=== PATIENT | male | born 1985 | race Caucasian/White ===

== ENCOUNTER 2019-10-16 16:38 | Inpatient (IN) | payer MEDICAID, SELFPAY ==
[2019-10-18 06:00] VITALS: BP 121/75; PULSE 75; RESP 19; TEMP 36.6; O2SAT 97
[2019-10-18] MEDS: PARoxetine 20 mg Tablet PO (10:23)
[2019-10-18] MEDS: lithium carbonate 150 mg Capsule PO ×2 (10:23→17:25)
[2019-10-18 14:00] VITALS: BP 123/79; PULSE 102; RESP 20; TEMP 36.9; O2SAT 97
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
[2019-10-18 19:57] VITALS: BP 157/80; PULSE 99; RESP 20; TEMP 36.6; O2SAT 95
[2019-10-18] MEDS: trazodone 50 mg Tablet PO (20:46)
[2019-10-19 06:00] VITALS: BP 142/85; PULSE 90; RESP 20; TEMP 36.4; O2SAT 98
[2019-10-19] MEDS: PARoxetine 20 mg Tablet PO (08:35)
[2019-10-19] MEDS: lithium carbonate 150 mg Capsule PO (08:35)
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
[2019-10-19 11:48] VITALS: BP 142/85; RESP 20; TEMP 36.4; O2SAT 98
--- NOTE | 2019-10-19 13:19 | DCPLANNER ---
medicaid [place] CARE transportation phone number: [phone]. Trip # [id number]
== END 2019-10-19 17:09 | disposition home or self-care (01) | DRG 882 ==
PROVIDERS: Emergency Provider Family Medicine; Family Provider Nurse Practitioner Family; PCP Nurse Practitioner Family; Referring Provider Nurse Practitioner Family; Visit Provider Psychiatry & Neurology Psychiatry
DX: F43.25 Adjustment disorder with mixed disturbance of emotions and conduct (principal); T14.91XA Suicide attempt, initial encounter; X83.8XXA Intentional self-harm by other specified means, initial encounter; F31.60 Bipolar disorder, current episode mixed, unspecified; F43.10 Post-traumatic stress disorder, unspecified; G47.30 Sleep apnea, unspecified; K21.9 Gastro-esophageal reflux disease without esophagitis; F63.81 Intermittent explosive disorder; F41.1 Generalized anxiety disorder; E66.9 Obesity, unspecified; Z68.34 Body mass index [BMI] 34.0-34.9, adult
CPT/HCPCS: 36415; 72125; 76536; 80053; 80307; 85025; 99223; 99232; 99283; 99285

== ENCOUNTER 2025-07-15 15:50 | Emergency (ER) | payer SELFPAY ==
--- OUTSIDE RECORDS SUMMARY | 2019-09-23 06:00 | XMS_ITS | Continuity of Care Document ---
Author Organization [facility] Address [id number] [address] Phone Care Team Providers Care Ingredient Handler Name Role Phone Polo Márquez DDS Unavailable Unavailable Unavailable Unavailable Unavailable Allergies, Adverse Reactions, Alerts Substance Reaction Status Criticality No Known Allergies Active No Inform ation Medications Medication Instructions Dosage Effective Dates (start - stop) Status Comments [place] 5 mg-325 mg tablet take 1 tablet by oral route every 6 hours as needed for pain - Active ibuprofen 800 mg tablet take 1 tablet by oral route 3 times every day with food for pain from oral surgery. 800 MG - Active Viibryd 40 mg tablet take 1 tablet by or al route every day with food as needed for Anxiety 40 MG - Active trazodone 50 mg tablet take 1 tablet by oral route 3 times every day after meals 50 MG - Active Vistaril 25 mg capsule take 1 capsule by oral route 4 times every day - Active Paxil 20 mg tablet take 1 tablet by ora l route every day 20 MG - Active Procedures Procedure Date Removal Of Impacted Tooth Soft Tissue EDR Approval Note Limited Oral Evaluation Problem Focused Treatment Plan Complete Intraoral Periapical First Film Panoramic Film Treatment Plan Complete Extraction, Erupted Tooth Or Exposed Denisa t (Elevati EDR Approval Note Vision svcs frames purchases Spherocylindr 4.00d/12-2.00d Spherocylindr 4.00d/2.12-4d FITTING OF SPECTACLES REFRACTION Eye Exam&tx Estab Pt 1/>vst FOREIGN BODY REMOVAL, CORNEAL, WITH SLIT LAMP OFFICE/OUTPATIENT VISIT NEW Advance Directives Directive Yes / No Effective Date File Name No Information Encounters Encounter Description Practice Location Reason(s) For Visit Diagnoses Date Provider Providers Copied on Encounter [facility], [id number] [place], [place], [id number], [place] tel:[phone] [facility] Encounter for dental exam and cleaning w/o abnormal findings 9 Willi Cuellar. [address], [place], [id number], [place]. tel:[phone] Referring Provider: Polo Márquez, [address] [place], [address] . tel:[phone] [facility], [id number] [place], [id number], [place] tel:[phone] [facility] Encounter for dental exam and cleaning w/o abnormal findings 9 No Information [facility], [id number] [place], [place], [id number], [place] tel:[phone] Vision F1 Encounter for fit/adjst of spectacles and contact lenses 9 No Information [facility], [id number], [address], [place] tel:[phone] Vision F1 blurry vision (chief complaint) Myopia, bilateralRegular astigmatism, bilateral Oct-2 9 No Information [facility], [id number], [id number], [place] tel:[phone] Vision F1 Metal in Eye (chief complaint) Foreign body in cornea, right eye, initial encounterSecondar y noninfectious iridocyclitis of right eye Jun- 9 No Information Family History Family Member Type Diagnosis Age At Onset No Information Payers Payer name Insurance type Covered alliance party ID Authorchynaa tesha(s) No Information Social History Type Description Quantity Date Captured Comments Alcohol Use Details No Caffeine Use Details Unknown Tobacco Use Status Smoking Status No Information Sex Male Sexual Orientation Heterosexual Gender Identity Male Vital Signs Date / Time: Height Weight BMI Pulse Rate Blood Pressure Temperature Respiratory Rate Body Surface Area Head Circumference Head Circ. Percentile Wt./Black. Percentile BMI percentile Pulse Ox Inhaled Ox 11:03 AM 142/86 mm[Hg] Chief Complaint And Reason For Visit No Information Reason For Referral Reason For Referral No Information History Of Present Illness Encounter Date Complaint History Of Prese nt Illness blurry vision Pt was seen in [facility] for a foreign body removal. eye is feeling great now. Pt is here for a vision exam for new glasses. Last eye exam was 2014 glasses are from that exam and pt feels like he sees well out of the glasses but feels rx might have changed. pt is not getting headaches. Pt has more trouble with distance than up close with glasses off. With glasses on he can see up close and distance. 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 A couple weeks ago he felt something go into his right eye. He went to see his PCP, Medina Hartley at [facility], she did put in the contrast and didn't notice anything. A couple days later he went to the ER because he was still in pain. They did notice foreign bodies, he didn't pick anything out but he did wash it out. He did give him an ointment (which is not helping--makes it feel more gritty). Pt stated that it feels very gritty, it does burn and is very sensitive to light. He can't tell if it's causing his vision to be blurry or not. Functional Status Date Functional Assessmen t No Information Instructions Date Instruction Additional Infor soheila Impression/Plan Impression/Plan Assessments Type Assessment Date No Information Patient Care Teams Name Effective Dates (start - stop) Status Members No Information
[2025-07-15 15:51] VITALS: BP 142/87; PULSE 107; TEMP 36.6; O2SAT 98
--- NOTE | 2025-07-15 16:41 | W.ED.NECK ---
HPI - Neck Pain/Injury General: Chief Complaint: Neck Pain/Injury Stated Complaint: neck pain and lipnodes swollen Time Seen by Provider: 07/15/25 16:31 Source: patient Mode of arrival: ambulatory Limitations: no limitations History of Present Illness: Patient is a 39-year-old male who presents to ED today with a complaint of swelling under his left jawline that he noticed when he woke up this morning. No known injury or trauma. Initially thought symptoms could be secondary to his ears. 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 Patient states he is not having any difficulty swallowing. No foreign body sensation. He is not having any difficulty breathing. He has not noticed any fevers. He denies dental pain. MD complaint: neck pain Onset (ago): hour(s) Place: home Severity: mild Duration: constant Relieving factors: none Exacerbating factors: other (palpation) Associated symptoms: Reports no associated symptoms; Denies headache(s) or nausea Treatments prior to arrival: none Related Data Previous Rx's ?Medication ?Instructions ?Recorded nejkzrhj-qxzmptxtq-buiplfyrx 3.5 3 drp otic (ear) Q8H 10 days #10 mL 03/28/24 mg-10,000 unit/mL-1 % ear drops,susp cefuroxime axetil 500 mg tablet 500 mg PO BID 7 days #14 tabs 07/15/25 metronidazole 500 mg tablet 500 mg PO Q8H 7 days #21 tabs 07/15/25 Allergies Allergy/AdvReac Type Severity Reaction Status Date / Time alprazolam (From Xanax) Allergy Unknown Verified 07/15/25 15:59 amoxicillin Allergy Unknown Verified 07/15/25 15:59 clavulanic acid (From Allergy Unknown Verified 07/15/25 15:59 Augmentin) hydrocodone Allergy Unknown Verified 07/15/25 15:59 Review of Systems Const: Denies: fever(s), chills, body aches, fatigue or malaise Eyes: Denies: change in vision, blurry vision, photophobia, floaters or seeing flashes ENMT: Denies: throat pain, uvular edema, enlarged tonsils, odynophagia, hoarseness, dental pain, ear or mastoid pain, ear discharge, change in hearing, tinnitus, disequilibrium, nasal discharge, nasal congestion or sinus pain Card: Denies: chest pain Resp: Denies: dyspnea GI: Denies: abdominal pain, nausea or vomiting Musc: Reports: neck pain; Denies: back pain, extremity pain, extremity swelling, joint pain or joint swelling Skin/Breast: Denies: rash Neuro: Denies: headache(s) Physical Exam Const: COMMON NORMALS: no acute distress, average body habitus, patient oriented x3, no limitations, healthy appearing, alert and well nourished GENERAL APPEARANCE: cooperative HENMT: COMMON NORMALS: normocephalic, atraumatic, external ears normal and TM's normal bilaterally HEAD & SCALP: normal to inspection, normocephalic and atraumatic FACE & SINUS: normal facial exam and face symmetric EXTERNAL EAR: Yes external ears normal, Yes mastoids normal and Yes no periauricular adenopathy EXTERNAL AUDITORY CANAL: Abnormal EAC present (crusting/dried debris throughout canals; no external otitis) EAC laterality: bilateral TYMPANIC MEMBRANE: TM's normal bilaterally MOUTH: Normal oral and palatal mucosa present, lip normal, tongue normal and other (TTP R submandibular gland tenderness; mild edema; no redness/warmth); no drooling and no muffled voice TEETH & GINGIVA: Yes fair dentition THROAT: posterior oropharynx normal, tonsils normal and uvula midline; no uvular edema Eye: GENERAL EYE: appearance normal, both eyes and all related structures Neck/C-Spine: COMMON NORMALS: full ROM, supple, no meningeal signs, no JVD, Thyroid normal and No carotid bruits GENERAL: Yes submandibular swelling THYROID: Thyroid normal CERVICAL SPINE: Yes cervical ROM normal Resp: COMMON NORMALS: normal respiratory effort and clear to auscultation bilaterally AUSCULTATION: clear to auscultation bilaterally Cardio: COMMON NORMALS: no JVD and regular rhythm RATE: tachycardic (mild) RHYTHM: regular rhythm Neuro: COMMON NORMALS: patient oriented x3 SENSORIUM/ORIENTATION: Yes alert MENINGEAL SIGNS: Yes no meningeal signs Course Vital Signs: Vital signs: Vital Signs Temperature 97.8 F 07/15/25 15:51 Pulse Rate 107 H 07/15/25 15:51 Blood Pressure 142/87 07/15/25 15:51 Pulse Oximetry 98 07/15/25 15:51 Oxygen Delivery Me thod Room Air 07/15/25 15:51 MDM - Neck Pain/Injury Medical Decision Making DDx includes sialoadenitis, sialolithiasis, lymphadenopathy, dental infection. He is not having any dental pain no obvious sign of caries or abscess clinically. He is tender directly over his right submandibular salivary gland. Discussed conservative treatments including sialagogues, duct expression, compresses. Will cover with abx. I don't have any concerns for vascular etiology. Nothing to suggest deep space infection/Hamzah's/etc. His ears are full of debris but no acute infection. I will have set him up with primary care for further evaluation in case symptoms do not improve. Return precautions given. He states he cannot take Augmentin. Will place on Cefuroxime/Metronidazole for appropriate coverage. Medical Records I reviewed the patient's medical records. No radiology studies performed this visit Discharge Plan Discharge Patient Disposition: Home Clinical Impression: Acute sialoadenitis Condition: Stable Prescriptions: New cefuroxime axetil 500 mg tablet 500 mg PO BID 7 Days Qty: 14 0RF metronidazole 500 mg tablet 500 mg PO Q8H 7 Days Qty: 21 0RF Discontinued cefdinir 300 mg capsule 300 mg PO BID 10 Days Qty: 20 0RF No Action saphkvou-zljfhzmkg-ZE 3.5-10,000-1 mg/mL-unit/mL-% drops,suspension 3 drp otic (ear) Q8H 10 Days Qty: 10 0RF Rx Instructions: Lay down with affected ear upward for 5 minutes following drop placement in ear Discharge Orders: Discharge ED (Routine); Ordered 07/15/25 Ordered By: Nazia Wolfe Referrals: Medina Hartley FNP [Family Provider, Nurse Practitioner] Patient Instructions: Sialoadenitis (ED), Patient Portal & Bessie Instructions Print Language: Citizen Of [place] Coding Level of Care Code ED Tester/Lift Trucker for Reid Guerra
--- NOTE | 2025-07-16 07:45 | DCPLANNER ---
messaged betty ward to establish pcp
== END 2025-07-15 17:07 | disposition home or self-care (01) ==
PROVIDERS: Emergency Provider Physician Assistant; Family Provider Nurse Practitioner Family
DX: K11.21 Acute sialoadenitis (principal)
CPT/HCPCS: 99283